=== PATIENT | female | born 1985 | race Caucasian/White ===

== ENCOUNTER 2016-12-17 20:33 | Emergency (ER) | payer SELFPAY ==
[~2016-12-17] VITALS: Ht 152.4 cm; Wt 60.5 kg
[2016-12-17 20:43] VITALS: BP 155/76; TEMP 100
[2016-12-17] MEDS ORDERED: PRENATAL PO (20:46)
[2016-12-17 22:24] LABS: PH 7 (5-8); URINE APPEARANCE Cloudy; URINE BACTERIA Rare /hpf; URINE BILIRUBIN Negative (NEGATIVE); URINE BLOOD Negative (NEGATIVE); URINE COLOR Yellow; URINE GLUCOSE Negative (NEGATIVE); URINE KETONE Negative (NEGATIVE)
[2016-12-17] MEDS ORDERED: AMOXICILLIN 50500 MG PO (22:36)
[2016-12-17 22:50] VITALS: PULSE 78
== END 2016-12-17 22:52 | disposition home or self-care (01) ==
LOC: COL.ER 20:33
PROVIDERS: Family Medicine
DX: O23.11 Infections of bladder in pregnancy, first trimester (principal); Z3A.13 13 weeks gestation of pregnancy

== ENCOUNTER 2017-05-27 18:07 | Outpatient (CLI) | payer MEDICAID ==
[2017-05-27] VITALS (8 sets, daily range): BP systolic 126–147; BP diastolic 83–92; PULSE 79–96; TEMP 98.1
[~2017-05-27] VITALS: Ht 152.4 cm; Wt 68.2 kg
[~2017-05-27 18:07] MED LIST: AMOXICILLIN 50500 MG PO; PRENATAL PO
[2017-05-27] MEDS ORDERED: TYLENOL PM EXTR1 TA1 PO (18:40)
[2017-05-27] MEDS ORDERED: PRENATAL FORMU1 EAC3 PO (18:40)
[2017-05-27 20:55] LABS: COLLECTION METHOD CLEAN CATCH
[2017-05-27 20:59] LABS: BASO % 0.3 % (0.0-2.0); EOS # 0.2 (0.0-0.7); EOS % 1.3 % (0-4.0); GRAN # 9.5 (1.4-6.5); GRAN % 70.7 % (42.2-75.2); HEMATOCRIT 35.2 % (37.0-47.0); HEMOGLOBIN 12.2 g/dl (12.5-16.0); LYMPH # 2.5 (1.2-3.4); LYMPH % 18.4 % (20.0-51.0); MEAN CELL VOLUME 88 fl (80.0-100.0); MEAN CORPUSCULAR HEMOGLOBIN 31 pg (27.0-31.0); MEAN CORPUSCULAR HGB CONC 35 g/dl (33.0-37.0); MONO # 1.1 (0.1-0.6); MONO % 7.9 % (1.7-9.3); PLATELET COUNT 308 K/mm3 (130-400)
[2017-05-27 21:03] LABS: MUCOUS Present /lpf; PH 7 (5-8); SQUAMOUS EPITHELIAL 0-2 /hpf; URINE APPEARANCE Hazy; URINE BACTERIA None Seen /hpf; URINE BILIRUBIN Negative (NEGATIVE); URINE BLOOD Negative (NEGATIVE); URINE COLOR Yellow; URINE GLUCOSE Negative (NEGATIVE); URINE KETONE Negative (NEGATIVE); URINE LEUKOCYTE ESTERASE Negative (NEGATIVE); URINE NITRATE Negative (NEGATIVE); URINE PROTEIN(semi-quant) Negative (NEGATIVE); URINE RBC 0-2 /hpf; URINE UROBILINOGEN Negative (NEGATIVE); URINE WBC 0-2 /hpf
[2017-05-27 21:08] LABS: ALBUMIN 3.2 gm/dL (3.5-5.0); BILIRUBIN,TOTAL 0.3 mg/dL (0.0-1.0); CREATININE, serum 0.5 mg/dL (0.52-1.25); POTASSIUM 3.6 mmol/L (3.4-5.0); TOTAL PROTEIN 6.4 gm/dL (6.4-8.2)
== END 2017-05-27 21:55 | disposition home or self-care (01) ==
LOC: LDRO 18:07
PROVIDERS: Obstetrics & Gynecology
DX: O62.9 Abnormality of forces of labor, unspecified (principal); Z3A.37 37 weeks gestation of pregnancy

== ENCOUNTER 2017-06-07 01:50 | Inpatient (IN) | payer MEDICAID ==
[2017-06-07] VITALS (23 sets, daily range): BP systolic 112–144; BP diastolic 62–92; PULSE 64–98; TEMP 97.5–98.3
[~2017-06-07] VITALS: Ht 152.4 cm; Wt 71.8 kg
[~2017-06-07 01:50] MED LIST changes: +PRENATAL FORMU1 EAC3 PO; +TYLENOL PM EXTR1 TA1 PO
[2017-06-07 02:30] LABS: BASO # 0.1 (0.0-0.2); BASO % 0.3 % (0.0-2.0); EOS # 0.2 (0.0-0.7); GRAN # 10.1 (1.4-6.5); GRAN % 69.7 % (42.2-75.2); HEMOGLOBIN 12.4 g/dl (12.5-16.0); MEAN CELL VOLUME 87 fl (80.0-100.0); MEAN CORPUSCULAR HEMOGLOBIN 30 pg (27.0-31.0); MEAN CORPUSCULAR HGB CONC 34 g/dl (33.0-37.0); MEAN PLATELET VOLUME 8.9 fl (7.4-10.4); PLATELET COUNT 330 K/mm3 (130-400); RED BLOOD COUNT 4.18 M/mm3 (4.10-5.30)
[2017-06-07 02:32] LABS: HEMATOCRIT 36.2 % (37.0-47.0)
[2017-06-08 01:32] VITALS: BP 123/70; PULSE 69; TEMP 97.9
[2017-06-08 05:06] VITALS: BP 122/67; PULSE 69; TEMP 97.8
[2017-06-08 07:35] VITALS: BP 117/71; PULSE 77; TEMP 98.3
[2017-06-08 15:55] VITALS: BP 143/88; PULSE 76; TEMP 98.1
[2017-06-08 21:30] VITALS: BP 137/80; PULSE 76; TEMP 98.3
[2017-06-09 08:06] VITALS: BP 142/90; PULSE 65; TEMP 98
[2017-06-09] MEDS ORDERED: IBU800 M1 PO (08:39)
[2017-06-09] MEDS ORDERED: NORCO 325 MG-51 TAB PO (08:39)
== END 2017-06-09 11:15 | disposition home or self-care (01) | DRG 766 ==
LOC: LDRO 01:50 → OB 02:11 → LDR 02:11 → OB 04:45
PROVIDERS: Student in an Organized Health Care Education/Training Program
PROC: 10D00Z1 Extraction of Products of Conception, Low, Open Approach (ICD-10-PCS; principal; 2017-06-07)
DX: O34.211 Maternal care for low transverse scar from previous cesarean delivery (principal); N85.8 Other specified noninflammatory disorders of uterus; O69.82X0 Labor and delivery complicated by other cord entanglement, without compression, not applicable or unspecified; Z3A.38 38 weeks gestation of pregnancy; Z37.0 Single live birth
CPT/HCPCS: J0171; J0690; J2175; J2250; J2270; J2370; J2405; J2550; J2590; J3010; J7120

== ENCOUNTER 2019-01-27 22:38 | Inpatient (IN) | payer MEDICAID ==
[~2019-01-27] VITALS: Ht 152.4 cm; Wt 72.7 kg
[~2019-01-27 22:38] MED LIST changes: +IBU800 M1 PO; +NORCO 325 MG-51 TAB PO
[2019-01-27 22:54] VITALS: BP 127/93; PULSE 74; TEMP 97.9
[2019-01-27 23:30] VITALS: BP 126/85; PULSE 78; TEMP 97.9
[2019-01-27 23:30] LABS: BASO % 0.2 % (0.0-2.0); EOS # 0.1 (0.0-0.7); EOS % 0.9 % (0-4.0); GRAN # 10.5 (1.4-6.5); GRAN % 70.6 % (42.2-75.2); HEMOGLOBIN 12.6 g/dl (12.5-16.0); LYMPH # 2.9 (1.2-3.4); LYMPH % 19.5 % (20.0-51.0); MEAN CELL VOLUME 87 fl (80.0-100.0); MEAN CORPUSCULAR HEMOGLOBIN 30 pg (27.0-31.0); MEAN CORPUSCULAR HGB CONC 35 g/dl (33.0-37.0); MEAN PLATELET VOLUME 8.4 fl (7.4-10.4); MONO # 1.2 (0.1-0.6); MONO % 7.9 % (1.7-9.3); PLATELET COUNT 317 K/mm3 (130-400); RED BLOOD COUNT 4.18 M/mm3 (4.10-5.30); REDCELL DISTRIBUTION WIDTH-CV 13.1 % (11.5-14.5)
[2019-01-27 23:32] LABS: HEMATOCRIT 36.2 % (37.0-47.0)
[2019-01-28] VITALS (17 sets, daily range): BP systolic 85–123; BP diastolic 56–83; PULSE 68–91; TEMP 97.9–98.1
--- NOTE | 2019-01-28 09:45 | NUR ---
Initial visit; Family thanked Supervisor Cook Room for looking in on Stacey and offering congratulations for their new baby girl and their sweet family. Supervisor [employer] Room offered God's blessings.
--- NOTE | 2019-01-28 09:55 | NUR ---
PATIENT UP TO BATHROOM [place] DC'D AND PERICARE DONE. PATIENT TOLERATE ACTIVITY WELL
[2019-01-29] VITALS: BP 110/69; PULSE 78; TEMP 98.4
[2019-01-29] MEDS ORDERED: NORCO 325 MG-51 TAB PO (07:06)
[2019-01-29] MEDS ORDERED: MOTRIN 800800 MG/TAB PO (07:06)
[2019-01-29 07:24] VITALS: BP 112/69; PULSE 84; TEMP 97.7
--- NOTE | 2019-01-29 07:31 | NUR ---
PT SLEEPING, REPORT RECIEVED FROM OFF GOING RNHARJIT. CARE TAKEN OVER BY THIS RN.
== END 2019-01-29 14:15 | disposition home or self-care (01) | DRG 788 ==
LOC: LDRO 22:38 → LDR 23:10 → OB 01-28 02:52
PROVIDERS: ADMIT Obstetrics & Gynecology
PROC: 10D00Z1 Extraction of Products of Conception, Low, Open Approach (ICD-10-PCS; principal; 2019-01-28)
DX: O34.211 Maternal care for low transverse scar from previous cesarean delivery (principal); Z3A.37 37 weeks gestation of pregnancy; Z37.0 Single live birth
CPT/HCPCS: J0690; J1885; J2370; J2405; J2590; J3010; J7120

== ENCOUNTER 2021-06-04 07:58 | Outpatient (CLI) | payer MEDICAID ==
[~2021-06-04] VITALS: Ht 152.4 cm; Wt 73.2 kg
[~2021-06-04 07:58] MED LIST changes: +MOTRIN 800800 MG/TAB PO
--- NOTE | 2021-06-04 08:05 | NUR ---
702480.5, G5L4 arrives on unit via wheelchair with c/o ctx. To LDR3 with spouse. Changes into clean gown. 0811EFM explained and placed. Pt reports ctx started early this am, and have gotten progressively worse over last hour. Reports ctx currently every 5min. Denies any LOF or VB. Reports normal movement. VS obtained. Assessment completed. 0818SVE CL/TH/HI. Plan of care reviewed with patient and spouse who verbalize understanding. Resting with call light within reach. 0836Dr. Priddle updated on pt. See physician notification.
[2021-06-04] MEDS ORDERED: TYLENOL PM EXTR1 TA1 PO (08:29)
[2021-06-04 08:30] VITALS: BP 126/87; PULSE 87; TEMP 97.7
[2021-06-04 09:00] VITALS: BP 123/82; PULSE 81
[2021-06-04 09:16] VITALS: PULSE 88
--- NOTE | 2021-06-04 09:16 | NUR ---
0916SVE /TH/HI. Dr. Barraza on unit and updated on pt. See physician notification. Plan of care discussed with pt who verbalizes understanding. Pt up to bathroom to change. 0930Discharge instructions reviewed with patient and spouse who verbalize understanding. Ambulatory off unit.
== END 2021-06-04 09:30 | disposition home or self-care (01) ==
LOC: LDRO 07:58 → LDR 08:41 → LDRO 09:30
DX: O47.1 False labor at or after 37 completed weeks of gestation (principal); Z3A.38 38 weeks gestation of pregnancy

== ENCOUNTER 2021-06-05 20:17 | Inpatient (IN) | payer MEDICAID ==
[~2021-06-05] VITALS: Ht 152.4 cm; Wt 73.2 kg
[2021-06-05] VITALS (12 sets, daily range): BP systolic 92–170; BP diastolic 60–852; PULSE 56–111; TEMP 98.5
--- NOTE | 2021-06-05 20:30 | NUR ---
G6L4. 38-6. Wheeled to LR 3 with spouse. Clean gown on. EFM and TOCO explained and applied. Pt states she has been esteban irregular all day but states for the last hour they have been 3-3.5 mins apart. Denies leaking of fluids or vaginal bleeding. Pt states she "has not been paying attention if baby has been moving today." Reports pain being in her back at this time. Plan of care explained. Call light within reach. Assessment and VS completed.
--- NOTE | 2021-06-05 21:40 | NUR ---
SVE unchanged. Pt breathing through contractions and states "I do not know how I going to go home in this much pain." Emotional support given to pt. 2149: called and updated on pt and her status. Admit orders received. See physican notification. 2157: IV started and labs obtained via IV site. LR bolus infusing without difficulty. at bedside and pt and spouse denies questions. 2201: Rishi DE LA ROSA at bedside. 2216: Pt off the monitor and wheeled back to OR due to amount of pain.
[2021-06-05 22:18] LABS: BASO % 0.2 % (0.0-2.0); EOS # 0.1 K/mm3 (0.0-0.7); EOS % 0.8 % (0.0-4.0); GRAN # 11.8 K/mm3 (1.4-6.5); GRAN % 78.3 % (42.2-75.2); HEMATOCRIT 39.7 % (37.0-47.0); HEMOGLOBIN 13.4 g/dl (12.5-16.0); LYMPH % 13.2 % (20.0-51.0); MEAN CELL VOLUME 84 fl (80.0-100.0); MEAN CORPUSCULAR HEMOGLOBIN 28 pg (27-31); MEAN CORPUSCULAR HGB CONC 34 g/dl (33.0-37.0); MEAN PLATELET VOLUME 8.9 fl (7.4-10.4); MONO % 6.4 % (1.7-9.3); PLATELET COUNT 383 K/mm3 (130-400); RED BLOOD COUNT 4.73 M/mm3 (4.10-5.30); REDCELL DISTRIBUTION WIDTH-CV 13.2 % (11.5-14.5)
[2021-06-06] VITALS (13 sets, daily range): BP systolic 110–131; BP diastolic 61–88; PULSE 68–105; TEMP 97.4–98.4
--- NOTE | 2021-06-06 08:13 | NUR ---
Assessment complete. Physical assessment unremarkable. Pt reports nausea with slight shortness of breath and feeling hot. VSS. Cool washcloths, crackers and Sprite provided. Pt reports pain to abd is still significant 6 out of 10 but binder is helping with gas pain in shoulder as well. No pain medicine available at this time but anti nausea medication administered per orders. No further needs reported. Call light in reach.
--- NOTE | 2021-06-06 09:14 | NUR ---
Initial visit attempt; Family resting, Bedspread Cutter Hand left card offering congratulations and God's blessings for the of their son along with information regarding the availability of spiritual care at [facility].
[2021-06-07 07:10] VITALS: BP 138/89; PULSE 75; TEMP 98.6
[2021-06-07] MEDS ORDERED: NORCO 325 MG-51 TAB PO (11:45)
[2021-06-07] MEDS ORDERED: MOTRIN 800800 MG/TAB PO (11:45)
--- NOTE | 2021-06-07 13:53 | NUR ---
1145 DISCHARGE INSTRUCTIONS REVIEWED WITH PATIENT. PATIENT VERBALIZED UNDERSTANDING. WILL NOTIFY THIS RN WHEN READY TO LEAVE. 1240ALL PERSONAL BELONGINGS GATHERED FROM PATIENT ROOM. PATIENT LEFT IN NO APPARENT DISTRESS VIA WHEELCHAIR. PATIENT ACCOMPANIED BY SPOUSE AND THIS RN.
== END 2021-06-07 12:40 | disposition home or self-care (01) | DRG 788 ==
LOC: LDRO 20:17 → OB 21:47 → LDR 21:47 → OB 06-06
PROVIDERS: ADMIT Obstetrics & Gynecology
PROC: 10D00Z1 Extraction of Products of Conception, Low, Open Approach (ICD-10-PCS; principal; 2021-06-05)
DX: O34.211 Maternal care for low transverse scar from previous cesarean delivery (principal); Z88.5 Allergy status to narcotic agent; O99.824 Streptococcus B carrier state complicating childbirth; O75.82 Onset (spontaneous) of labor after 37 completed weeks of gestation but before 39 completed weeks gestation, with delivery by (planned) cesarean section; O69.2XX0 Labor and delivery complicated by other cord entanglement, with compression, not applicable or unspecified; Z37.0 Single live birth; Z3A.38 38 weeks gestation of pregnancy
CPT/HCPCS: J0690; J1885; J2370; J2405; J2550; J2590; J7120

== ENCOUNTER 2023-11-16 13:27 | Inpatient (IN) | payer MEDICAID ==
[~2023-11-16] VITALS: Ht 152.4 cm; Wt 77.7 kg
[2023-11-16] VITALS (19 sets, daily range): BP systolic 122–149; BP diastolic 28–89; PULSE 68–104; TEMP 97.7–98.5
--- NOTE | 2023-11-16 13:40 | NUR ---
903375.2, G7L5 arrives on unit via w/c with c/o ctx for last two days that have gotten increasingly worse this am. Reports ctx every 5min. Denies any LOF or VB. +FM. Changes into clean gown. 1341Rn at bedside. EFM applied and tracing well. VS obtained. 1345SVE /-2. See flowsheet. Assessment completed. 1410Dr. Roles updated on pt. See physican notification. Plan of care reviewed with pt who verbalizes understanding. Melinda Forde CRNA notified. 1420IV to left wrist. Routine labs obtained. LR bolus started. Dr. Tijerina to bedside and reviews plan of care with pt and spouse who verbalize understanding. 1425L. Eula DE LA ROSA at bedside and discusses anesthesia plan of care with pt and spouse who verbalize understanding. Consent forms explained and signed. 1445EFM of and pt to OR suite.
[2023-11-16] MEDS ORDERED: LR 1,000 ML IV SCH (14:15)
[2023-11-16] MEDS ORDERED: Azithromycin 500 MG in NS 250 ML IV ONE (14:15)
[2023-11-16 14:30] LABS: HEMOGLOBIN 12.2 g/dl (12.5-16.0); MEAN CELL VOLUME 85 fl (80.0-100.0); MEAN CORPUSCULAR HEMOGLOBIN 29 pg (27-31); MEAN CORPUSCULAR HGB CONC 33 g/dl (33.0-37.0); MEAN PLATELET VOLUME 9.1 fl (7.4-10.4); PLATELET COUNT 365 K/mm3 (130-400); RED BLOOD COUNT 4.28 M/mm3 (4.10-5.30); REDCELL DISTRIBUTION WIDTH-CV 13.3 % (11.5-14.5)
[2023-11-16 14:32] LABS: HEMATOCRIT 36.5 % (37.0-47.0)
[2023-11-16] MEDS ORDERED: Oxytocin 10 UNITS/ML VIAL ONE (14:32)
[2023-11-16] MEDS ORDERED: Ondansetron 4 MG/2 ML VIAL ONE (14:32)
[2023-11-16] MEDS ORDERED: NS 10 ML IV ONE (14:32)
[2023-11-16] MEDS ORDERED: dexAMETHasone 10 MG/ML VIAL ONE (14:32)
[2023-11-16] MEDS ORDERED: Ketorolac 30 MG/ML VIAL ONE (14:32)
[2023-11-16] MEDS ORDERED: Ondansetron 4 MG/2 ML VIAL IV ONE (14:39)
[2023-11-16 14:45] LABS: BAND 3 % (0-10); EOSINOPHIL 1 % (0-4); LYMPHOCYTE 15 % (20.0-51.0); NEUTROPHILS 80 % (42.0-75.2)
[2023-11-16 14:46] LABS: ANISOCYTOSIS 1+; PLATELET ESTIMATE NORMAL (NORMAL)
[2023-11-16] MEDS ORDERED: LR 1,000 ML IV ONE (15:18)
[2023-11-16] MEDS ORDERED: ePHEDrine 50 MG/ML VIAL ONE (15:18)
[2023-11-16] MEDS ORDERED: fentaNYL 50 MCG/ML 2 ML VIAL ONE (15:23)
--- NOTE | 2023-11-16 15:55 | NUR ---
TO PACU PER BED BY THIS NURSE AND CHRISTOPHER-RJ, PT AWAKE, ALERT, VSS, DENIES PAIN, UNABLE TO MOVE LEGS AT THIS TIME, ABD DRESSING CDI, FUNDUS FIRM, VSS.
--- NOTE | 2023-11-16 15:55 | NUR ---
TO PACU PER BED BY THIS NURSE AND CHRISTOPHER-IMMUNOPATHOLOGIST, AWAKE/ALERT, VSS, DENIES PAIN,[place] TO DEPENDANT DRANINAGE, ABD DRESSING CDI, ORIENTED TO PLAN OF CARE.
[2023-11-16] MEDS ORDERED: Measles/Mumps/Rubella Virus Vaccine Live w Diluent 0.5 ML VIAL SQ SCH (16:00)
[2023-11-16] MEDS ORDERED: Ondansetron 4 MG/2 ML VIAL IV PRN (16:00)
[2023-11-16] MEDS ORDERED: Loratadine 10 MG TAB PO PRN (16:00)
[2023-11-16] MEDS ORDERED: Naloxone 0.4 MG/ML VIAL IV PRN (16:00)
[2023-11-16] MEDS ORDERED: LR 1,000 ML IV PRN (16:00)
[2023-11-16] MEDS ORDERED: Magnes Hydrox (MOM) 80 MG/ML 30 ML CUP PO PRN (16:00)
--- NOTE | 2023-11-16 16:20 | NUR ---
BABE IN ROOM TO LEFT BREAST WITH GOOD LATCH, DAD AT BEDSIDE, +BONDING, PT DENIES PAIN, UNABLE TO MOVE LEGS, TOLERATING ICE CHIPS.
--- NOTE | 2023-11-16 16:20 | NUR ---
BABE TO LEFT BREAST WITH GOOD LATCH, DAD AT SIDE, +BONDING NOTED, PT TOLERATES ICE CHIPS WELL, DENIES PAIN.
--- NOTE | 2023-11-16 16:25 | NUR ---
FUNDUS MASSAGED FIRM, SMALL CLOT ON CHUCKY PAD, 82G WEIGHT CHARTED ON PP FLOW SHEET, CHUCKY PAD CHANGED, PT TOLERATED WELL, BABE CONTINUES TO BREASTFEED, TO ROOM 220 PER BED, ORIENTED TO RM, CALL LIGHT, PLAN OF CARE, WATER PITCHER FILLED AND GAVE LUIS CRACKERS AND JELLO PER REQUEST. AT SIDE.
[2023-11-16] MEDS ORDERED: Sennosides/Docusate 8.6-50 MG TAB PO SCH (17:00)
--- NOTE | 2023-11-16 18:30 | NUR ---
PT DENIES PAIN, VSS, FINISHED SUPPER, GOOD APPETITE, HOLDS BABE, BEDSIDE REPORT TO BHARAT-IVY.
--- NOTE | 2023-11-16 19:30 | NUR ---
1929 PERICARE DONE AND PAD CHANGED. ABD BINDER ON.
[2023-11-16] MEDS ORDERED: traZODone 50 MG TAB PO PRN (21:00)
[2023-11-16] MEDS ORDERED: Ibuprofen 800 MG TAB PO SCH (21:48)
[2023-11-17 07:51] VITALS: BP 148/92; PULSE 90; TEMP 97.9
--- NOTE | 2023-11-17 08:00 | NUR ---
BP ELEVATED. PT C/O HEADACHE, NAUSEA, AND SWELLING TO FEET AND HANDS. ANTI-NAUSEA AND ANTI-PAIN MEDICATION ADMINISTERED PER ORDERS. DR. DE OLIVEIRA NOTIFIED.
[2023-11-17 10:38] VITALS: BP 145/89; PULSE 75; TEMP 97.8
[2023-11-17] MEDS ORDERED: NORCO 325 MG-51 TAB PO (10:53)
[2023-11-17] MEDS ORDERED: IBU800 M1 PO (10:53)
[2023-11-17 11:31] VITALS: BP 150/88; PULSE 77; TEMP 97.9
[2023-11-17 13:20] VITALS: BP 130/86; PULSE 77; TEMP 97.9
[2023-11-17 18:50] VITALS: BP 129/87; PULSE 88; TEMP 98.7
[2023-11-18 08:30] VITALS: BP 139/87; PULSE 75; TEMP 97.9
== END 2023-11-18 12:06 | disposition home or self-care (01) | DRG 788 ==
LOC: LDRO 13:27 → LDR 14:33 → OB 16:00
PROVIDERS: Obstetrics & Gynecology; ADMIT Obstetrics & Gynecology
PROC: 10D00Z1 Extraction of Products of Conception, Low, Open Approach (ICD-10-PCS; principal; 2023-11-16)
DX: O34.211 Maternal care for low transverse scar from previous cesarean delivery (principal); Z3A.38 38 weeks gestation of pregnancy; Z37.0 Single live birth
CPT/HCPCS: A9284; J0456; J0665; J0690; J1100; J1885; J2405; J2590; J3010; J7050; J7120